=== PATIENT | male | born 1990 | race Hispanic/Latino ===

== ENCOUNTER 2019-05-05 15:53 | Emergency (ER) | payer OTHER, SELFPAY ==
--- NOTE | ~2019-05-05 | XR_ITS ---
EXAMINATION: XR chest 2V 05/05/2019 17:07 INDICATION: Productive cough with fever PROCEDURE: 2 view chest COMPARISON: No prior studies for comparison. FINDINGS: The lungs are clear. The cardiomediastinal silhouette is within normal limits. There are no pleural effusions. There is no pneumothorax suspected. IMPRESSION: 1: NO ACUTE CARDIOPULMONARY DISEASE. Reviewed, dictated and finalized at location A. [facility]
[2019-05-05 16:13] VITALS: BP 133/85; PULSE 118; RESP 16; TEMP 39.9; O2SAT 97
--- NOTE | 2019-05-05 16:49 | ED.URI ---
HPI - URI/Sore Throat General Chief Complaint: Upper Respiratory Infection Stated Complaint: Pos Pneumonia Time Seen by Provider: 05/05/19 16:49 Source: patient and RN notes reviewed Mode of arrival: ambulatory Limitations: no limitations History of Present Illness HPI Narrative: 28 year old male who presents to express care with increase in cough with production of yellow mucous. Patient states that he was diagnosed with Influenza on Thursday and his cough has been worse. Patient states that he hears a gurgling in his upper chest when he lyes down, reports it's panful to take a deep breath. Patient states that he has taken OTC cough medication with minimal help and has been taking Ibuprofen for his fever and discomfort. MD elicited complaint: fever, cough, rhinorrhea and nasal congestion Pertinent past history: other (influenza) Onset (ago): day(s) (5 days) Consistency: progressively worsening Severity: moderate Description of mucous: yellow Able to tolerate fluids by mouth: Yes Exacerbating factors: exertion and deep breaths Relieving factors: NSAID and cough suppressant Associated symptoms: fever, chills, myalgias, cough and chest pain (with deep breathing) Treatments prior to arrival: ibuprofen and other (cough medication) Related Data Allergies Allergy/AdvReac Type Severity Reaction Status Date / Time No Known Allergies Allergy Verified 05/05/19 16:03 Review of Systems Review of Systems: Narrative: CONSTITUTIONAL: Positive fever, chills, or sweats. EYES: Denies visual changes, redness, or discharge. ENT: clear rhinorrhea, congestion, no sore throat, or otalgia. CARDIOVASCULAR:reports chest pain with deep breathing,no palpitations, or edema. RESPIRATORY: Positive cough no dyspnea. GASTROINTESTINAL: Denies abdominal pain, nausea, vomiting, or diarrhea. GENITOURINARY: Denies dysuria or hematuria. SKIN: Denies rash or itching. MUSCULOSKELETAL: Denies back pain, joint pain,positive body aches NEUROLOGIC: Denies headache, numbness, or weakness. PSYCHIATRIC: Denies anxiety or depression. All systems reviewed & are unremarkable except as noted in HPI and below PMFSH Past Medical History Medical History (Updated 05/12/19 @ 15:39 by Michelle Pablo NP) No significant medical problems Social History Social History (Updated 05/12/19 @ 15:40 by Michelle L. Samy, EMERGENCY MEDICAL TECH) Smoking status: Never smoker Living arrangements: with family Gender identity (if verbalized by the patient): Male Comments At time of signature, agree with nursing past medical, social history. There is no relevant family history pertinent to the presenting complaint Exam Narrative: Exam Narrative: GENERAL Illl-appearing, well-nourished, and in no acute distress. HEAD: Normocephalic, atraumatic. EYES: PERRLA and EOMI. ENT: Nares red, clear rhinorrhea no epistaxis. Mucous membranes moist.TM's normal with good light reflex, throat mild redness no lesions or tonsil enlargement, post nasal drainage NECK: Supple.no lymphadenopathy CHEST: Clear to auscultation. No respiratory distress.productive cough of yellow mucous, SAO2 97% on room air HEART: Regular rate and rhythm. No murmur heard. Normal peripheral pulses. ABDOMEN: Soft, nontender, nondistended, normal active bowel sounds. EXTREMITIES: Normal range of motion. No edema. SKIN: Warm, dry, no rash. NEURO: No focal deficits. Alert and oriented x3. Course Vital Signs Vital signs: Vital Signs Temperature 39.9 C H 05/05/19 16:13 Pulse Rate 118 H 05/05/19 16:13 Respiratory Rate 16 05/05/19 16:13 Blood Pressure 133/85 05/05/19 16:13 Pulse Oximetry 97 05/05/19 16:13 Temperature 39.9 C H 05/05/19 16:13 Pulse Rate 118 H 05/05/19 16:13 Respiratory Rate 16 05/05/19 16:13 Blood Pressure 133/85 05/05/19 16:13 Pulse Oximetry 97 05/05/19 16:13 MDM - URI/Sore Throat Differential Diagnosis Differential diagnosis: Likely upper respiratory infection, viral infection, influenza and
== END 2019-05-05 17:36 | disposition home or self-care (01) ==
PROVIDERS: Emergency Provider Registered Nurse
DX: J11.1 Influenza due to unidentified influenza virus with other respiratory manifestations (principal); R05 Cough
CPT/HCPCS: 71046; 99213; G0463

== ENCOUNTER 2020-10-16 22:22 | Emergency (ER) | payer OTHER, SELFPAY ==
[2020-10-16] VITALS (7 sets, daily range): BP systolic 133–162; BP diastolic 78–85; PULSE 73–86; RESP 14–19; TEMP 36.4; O2SAT 97–100
--- NOTE | ~2020-10-16 | XR_ITS ---
EXAMINATION: XR chest 2V DATE: 10/16/2020 22:54 INDICATION: Chest pain. TECHNIQUE: Frontal and lateral views of the chest were obtained. COMPARISON: Chest 2 views 05/05/2019 FINDINGS: The chest demonstrates clear lungs without pneumonia, pleural effusion, or pneumothorax. Th e heart size is normal. IMPRESSION: 1. No acute cardiopulmonary disease. Reviewed, dictated and finalized at location A.
--- NOTE | 2020-10-16 22:26 | ECG_ITS ---
Measurements Intervals [place] Rate: 74 P: 18 CA: 144 QRS: 13 QRSD: 90 T: 3 QT: 360 QTc: 400 Interpretive Statements SINUS RHYTHM NONSPECIFIC T-WAVE ABNORMALITY- INFERIOR LEADS BORDERLINE ECG Electronically Signed On 10-17-2020 6:02:45 CDT by David Selby D.O.
--- NOTE | 2020-10-16 22:49 | PC.NURSE ---
Pt off floor to xray
[2020-10-16 23:38] LABS: Basophils Absolute Auto 0.1 K/mm3 (0.0-0.1); Eosinophils Absolute Auto 0.2 K/mm3 (0-0.3); Eosinophils Percent Auto 2.4 % (0-4.4); Hematocrit 42.9 % (42.0-52.0); Hemoglobin 14.2 g/dL (14.0-18.0); Immature Granulocyte Absolute 0.06 K/mm3 (0.00-0.031); Immature Granulocyte Percent A 0.7 % (0-0.5); Lymphocytes Absolute Auto 2.24 K/mm3 (0.9-3.2); Lymphocytes Percent Auto 24.9 % (18.3-44.2); Mean Corpuscular HGB Conc 33.1 g/dl (32-36); Mean Corpuscular Hemoglobin 30.5 pg (26-34); Mean Corpuscular Volume 92.1 fl (80-100); Mean Platelet Volume 8.8 fl (7.4-10.4); Monocytes Absolute Auto 1.1 K/mm3 (0.1-0.6); Monocytes Percent Auto 12.3 % (2.6-8.5); Neutrophils Absolute Auto 5.3 K/mm3 (1.3-6.7); Neutrophils Percent Auto 58.7 % (45.5-73.1); Platelet Count Result 299 k/mm3 (150-375); Red Blood Count 4.66 M/mm3 (4.6-6.20); Red Cell Distribution Width 12.9 % (11.5-14.5)
[2020-10-16 23:38] LABS: Add Urine Microscopic? NO; Appearance Urine Clear (Clear); Bilirubin Urine Negative (Negative); Blood Urine Negative (Negative); Color Urine Colorless (Yellow); Glucose Urine UA Negative (Negative); Ketones Urine Negative (Negative); Leukocyte Esterase Ur Negative LEU/UL (Negative); Nitrate Urine Negative (Negative); Protein Urine Negative (Negative); Specific Grav Ur 1.005 (1.001-1.035); Urobilinogen Urine Negative mg/dL (<2.0)
[2020-10-16 23:52] LABS: Anion Gap 7 mmol/L (8-16); Blood Urea Nitrogen 18 mg/dL (9-20); Calcium 9.7 mg/dL (8.4-10.2); Carbon Dioxide 29 mmol/L (22-30); Chloride 101 mmol/L (98-107); Estimated CRCL calculation 113 ml/min; Estimated Glomerular Filt Rate > 60; Glucose 83 mg/dL (65-110); Potassium 3.7 mmol/L (3.4-5.0); Sodium 137 mmol/L (137-145)
[2020-10-16 23:53] LABS: Alanine Aminotransferase 32 U/L (4-50); Albumin Level 4.5 g/dL (3.5-5.1); Alkaline Phosphatase 90 U/L (38-126); Aspartate Amino Transferase 37 U/L (17-59); Bilirubin,Total 0.4 mg/dL (0.2-1.3); Lipase 107 U/L (23-300)
[2020-10-16 23:56] LABS: D Dimer 0.27 ug/mL (<0.48)
[2020-10-17 00:03] LABS: INR 0.8; Partial Thromboplastin Time 27.6 SECONDS (22.3-36.8); Prothrombin Time 11.3 Seconds (11.1-14.7)
[2020-10-17 00:05] LABS: Troponin I < 0.012 ng/mL (0.000-0.034)
--- NOTE | 2020-10-17 00:26 | ED.GENADULT ---
HPI - General Adult General Chief complaint: Chest Pain Stated complaint: chest pain Time Seen by Provider: 10/16/20 22:52 History of Present Illness HPI narrative: Patient is a 30-year-old gentleman who presents the emergency department with chief complaint of chest pain. Patient reports that he had Covid back in the middle of September and reports that today he noticed that he felt a little bit of tightness in his chest. Patient states that went away and then this evening he had another episode. The patient states he feels much better at this time reports that he had no diaphoresis no radiation reports that he has no family history for cardiac disease at a young age. Patient reports pain is improved spontaneously Related Data Home Medications Medication Instructions Recorded Confirmed No Home Medications 10/16/20 10/16/20 Allergies Allergy/AdvReac Type Severity Reaction Status Date / Time No Known Allergies Allergy Verified 10/16/20 22:42 Review of Systems Review of Systems: A 10 system review of systems was completed on the patient and is negative except for what is stated in the HPI. Nursing and ancillary documentation was reviewed. [facility] Past Medical History Medical History No significant medical problems Social History Social History Smoking status: Never smoker Gender identity (if verbalized by the patient): Male Exam Narrative: GENERAL: Well-appearing, well-nourished, and in no acute distress. HEAD: Normocephalic, atraumatic. EYES: PERRLA and EOMI. ENT: Nares clear, no rhinorrhea or epistaxis. Mucous membranes moist. NECK: Supple. CHEST: Clear to auscultation. No respiratory distress. HEART: Regular rate and rhythm. No murmur heard. Normal peripheral pulses. ABDOMEN: Soft, nontender, nondistended, normal active bowel sounds. EXTREMITIES: Normal range of motion. No edema. SKIN: Warm, dry, no rash. NEURO: No focal deficits. Alert and oriented x3. PSYCH: Normal mood and affect. Course Vital Signs Vital signs: Vital Signs Temperature 36.4 C 10/16/20 22:37 Pulse Rate 86 10/16/20 22:37 Respiratory Rate 18 10/16/20 22:37 Blood Pressure 162/78 H 10/16/20 22:37 Pulse Oximetry 100 10/16/20 22:37 Temperature 36.4 C 10/16/20 22:37 Pulse Rate 75 10/16/20 23:15 Respiratory Rate 19 10/16/20 23:15 Blood Pressure 143/82 H 10/16/20 22:47 Pulse Oximetry 99 10/16/20 23:15 Medical Decision Making Vital Signs Vital Signs: Vital Signs Temperature 36.4 C 10/16/20 22:37 Pulse Rate 86 10/16/20 22:37 Respiratory Rate 18 10/16/20 22:37 Blood Pressure 162/78 H 10/16/20 22:37 Pulse Oximetry 100 10/16/20 22:37 Temperature 36.4 C 10/16/20 22:37 Pulse Rate 75 10/16/20 23:15 Respiratory Rate 19 10/16/20 23:15 Blood Pressure 143/82 H 10/16/20 22:47 Pulse Oximetry 99 10/16/20 23:15 Lab Data Result diagrams: 10/16/20 23:17 10/16/20 23:17 Labs: Lab Results 10/16/20 10/16/20 10/16/20 Range/Units 23:15 23:17 23:17 WBC 9.0 (4.5-10.0) K/mm3 RBC 4.66 (4.6-6.20) M/mm3 Hgb 14.2 (14.0-18.0) g/dL Hct 42.9 (42.0-52.0) % MCV 92.1 (80-100) fl MCH 30.5 (26-34) pg MCHC 33.1 (32-36) g/dl RDW 12.9 (11.5-14.5) % Plt Count 299 (150-375) k/mm3 MPV 8.8 (7.4-10.4) fl Immature Gran % (Auto) 0.7 H (0-0.5) % Neut % (Auto) 58.7 (45.5-73.1) % Lymph % (Auto) 24.9 (18.3-44.2) % [place] % (Auto) 12.3 H (2.6-8.5) % Eos % (Auto) 2.4 (0-4.4) % Baso % (Auto) 1.0 (0.2-1.2) % Lymph # (Auto) 2.24 (0.9-3.2) K/mm3 [place] # (Auto) 1.1 H (0.1-0.6) K/mm3 Eos # (Auto) 0.2 (0-0.3) K/mm3 Baso # (Auto) 0.1 (0.0-0.1) K/mm3 Abs Immat Gran (auto) 0.06 H (0.00-0.031) K/mm3 Absolute Neuts (auto) 5.3 (1.3-6.7) K/mm3 Abs
[2020-10-17 00:47] VITALS: BP 130/72; PULSE 70; RESP 17; O2SAT 99
== END 2020-10-17 00:50 | disposition home or self-care (01) ==
PROVIDERS: Emergency Provider Emergency Medicine
DX: R07.89 Other chest pain (principal)
CPT/HCPCS: 36415; 71046; 80048; 80076; 81003; 83690; 84484; 85025; 85380; 85610; 85730; 93005; 99284